=== PATIENT | male | born 1940 | race Caucasian/White ===

== ENCOUNTER → 2020-10-18 | Outpatient (CLI) | payer OTHER ==
[2020-10-18 12:12] LABS: Hematocrit 33.9 % (41.0-53.0); Hemoglobin 11.6 g/dL (13.5-17.5); Mean Corpuscular Hemoglobin 32.9 pg (28.0-32.0); Mean Corpuscular Hgb Conc. 34.4 g/dL (32.0-36.0); Mean Corpuscular Volume 95.7 fL (80.0-100.0); Platelet Count (auto) 131 10^3/uL (140-450); Red Blood Cells 3.54 10^6/uL (4.5-5.90); Red Cell Distribution Width 17.2 % (11.8-14.3); White Blood Cell 4.5 10^3/uL (4.4-10.8)
[2020-10-18 12:14] LABS: Band Neutrophils % (manual) 0; Basophils % (manual) 0 (0.0-2.0); Blast Cells 0; Metamyelocytes % 0; Myelocytes % 0; Promyelocytes % 0; Reactive Lymphocytes 0
[2020-10-18 12:55] LABS: Potassium 4.6 mmol/L (3.5-5.1)
[2020-10-18 13:03] LABS: Albumin 3.6 g/dL (3.4-5.0); BUN/Creatinine Ratio 24.1; Bilirubin, Total 0.6 mg/dL (0.2-1.0); Calcium 8.7 mg/dL (8.5-10.1)
[2020-10-18 13:21] LABS: Eosinophils % (manual) 2 (0-7); Lymphocytes % (manual) 39 (10.0-50.0); Monocytes % (manual) 24 (0-12)
== END | disposition home or self-care (01) ==
LOC: LAB 11:55
PROVIDERS: ATTEND Student in an Organized Health Care Education/Training Program
DX: I10 Essential (primary) hypertension (principal); E03.9 Hypothyroidism, unspecified; N39.0 Urinary tract infection, site not specified; Z12.11 Encounter for screening for malignant neoplasm of colon
CPT/HCPCS: 36415; 80053; 80061; 84443; 85007; 85027

== ENCOUNTER → 2021-10-15 | Outpatient (CLI) | payer OTHER ==
[2021-10-15 10:39] LABS: Basophils # (auto) 0 10 ^3/uL (0-0.2); Basophils % (auto) 0.5 % (0.0-2.0); Eosinophils # (auto) 0.1 10 ^3/uL (0-0.8); Eosinophils % (auto) 2.3 % (0.0-7.0); Hematocrit 34.7 % (41.0-53.0); Hemoglobin 11.8 g/dL (13.5-17.5); Lymphocytes # (auto) 1.7 10 ^3/uL (0.4-5.4); Lymphocytes % (auto) 37.6 % (10.0-50.0); Mean Corpuscular Hgb Conc. 33.9 g/dL (32.0-36.0); Mean Corpuscular Volume 94.3 fL (80.0-100.0); Monocytes # (auto) 0.9 10 ^3/uL (0-1.3); Neutrophils # (auto) 1.8 10 ^3/uL (1.6-8.6); Neutrophils % (auto) 39.7 % (37.0-80.0); Nucleated Red Blood Cells % 0.2 %; Red Blood Cells 3.68 10^6/uL (4.5-5.90); Red Cell Distribution Width 17.2 % (11.8-14.3); White Blood Cell 4.6 10^3/uL (4.4-10.8)
[2021-10-15 10:45] LABS: Monocytes % (auto) 19.9 % (0.0-12.0)
[2021-10-15 13:15] LABS: Potassium 4.5 mmol/L (3.5-5.1)
[2021-10-15 13:33] LABS: Albumin 3.6 g/dL (3.4-5.0); Bilirubin, Total 0.6 mg/dL (0.2-1.0); Calcium 9.1 mg/dL (8.5-10.1)
[2021-10-17 11:46] LABS: Urine Bacteria FEW /hpf (None Seen); Urine Blood Negative /uL (Negative); Urine Specific Gravity 1.013 (1.001-1.035); Urine WBC 6 /hpf (0 - 3)
== END | disposition home or self-care (01) ==
LOC: LAB 10:00
PROVIDERS: ATTEND Student in an Organized Health Care Education/Training Program
DX: D64.0 Hereditary sideroblastic anemia (principal); E03.9 Hypothyroidism, unspecified; I10 Essential (primary) hypertension
CPT/HCPCS: 36415; 80053; 80061; 81001; 84443; 85025

== ENCOUNTER → 2022-03-29 | Outpatient (CLI) | payer OTHER ==
[2022-03-29 08:38] LABS: Urine Bacteria FEW /hpf (None Seen); Urine Blood Negative /uL (Negative); Urine Hyaline Cast FEW /lpf (0 - 2); Urine Mucus FEW (None Seen); Urine Specific Gravity 1.019 (1.001-1.035); Urine WBC 150 /hpf (0 - 3)
== END | disposition home or self-care (01) ==
LOC: LAB 07:28
PROVIDERS: ATTEND Urology
DX: N39.0 Urinary tract infection, site not specified (principal)
CPT/HCPCS: 81001; 87086

== ENCOUNTER → 2022-07-08 | Outpatient (CLI) | payer OTHER | END | disposition home or self-care (01) | LOC: XYW 13:30 | PROVIDERS: ATTEND Internal Medicine | DX: I07.1 Rheumatic tricuspid insufficiency (principal); I11.9 Hypertensive heart disease without heart failure | CPT/HCPCS: 93306 ==

== ENCOUNTER → 2022-07-12 | Outpatient (CLI) | payer OTHER ==
[~2022-07-12] VITALS: Ht 180.3 cm; Wt 88.5 kg
[~2022-07-12] MED LIST: ADENOSINE 74 MG in GIVE UN-DILUTED 0 ML IV ONE
== END | disposition home or self-care (01) ==
LOC: XYW 07:25
PROVIDERS: ATTEND Internal Medicine
DX: Z01.810 Encounter for preprocedural cardiovascular examination (principal); I10 Essential (primary) hypertension; E78.5 Hyperlipidemia, unspecified; E03.9 Hypothyroidism, unspecified
CPT/HCPCS: 78452; 93017; A9500; J0153

== ENCOUNTER → 2022-08-22 | Day surgery (SDC) | payer OTHER ==
[2022-08-19 13:29] LABS: Hematocrit 32.6 % (41.0-53.0); Hemoglobin 11.1 g/dL (13.5-17.5); Mean Corpuscular Hemoglobin 32.7 pg (28.0-32.0); Mean Corpuscular Volume 96.2 fL (80.0-100.0); Red Blood Cells 3.39 10^6/uL (4.5-5.90); Red Cell Distribution Width 17.9 % (11.8-14.3); White Blood Cell 3.8 10^3/uL (4.4-10.8)
[2022-08-19 13:46] LABS: Basophils % (manual) 0 (0.0-2.0); Blast Cells 0; Eosinophils % (manual) 0 (0-7); Myelocytes % 0; Promyelocytes % 0
[2022-08-19 13:52] LABS: INR 0.99 (0.9-1.15); Partial Thromboplastin Time 30.5 sec (24.6-33.4)
[2022-08-19 14:00] LABS: Potassium 4.9 mmol/L (3.5-5.1)
[2022-08-19 14:15] LABS: Albumin 3.5 g/dL (3.4-5.0); BUN/Creatinine Ratio 19.3; Bilirubin, Total 0.6 mg/dL (0.2-1.0); Calcium 8.7 mg/dL (8.5-10.1); Total Protein 7.2 g/dL (6.4-8.2)
[2022-08-19 14:45] LABS: Band Neutrophils % (manual) 1; Lymphocytes % (manual) 23 (10.0-50.0); Metamyelocytes % 1; Monocytes % (manual) 14 (0-12); Reactive Lymphocytes 1
[~2022-08-22] VITALS: Ht 182.9 cm; Wt 88.9 kg
[~2022-08-22] MED LIST changes: -ADENOSINE 74 MG in GIVE UN-DILUTED 0 ML IV ONE; +ATOR20TA PO; +BACDST PO; +CALC-179 OR; +CIPROFLOXACIN 400MG/200ML 200 ML IV ONE; +DexAMETHasone SOD PHOS 10MG/1ML VIAL INJ ONE; +FINA5TAB4 PO; +HYDROmorphone HCL 2 MG/ML VL/or syr IV PRN; +LABETALOL HCL 5 MG/ML 4ML SYRINGE IV PRN; +LEVO25TA6 PO; +LISI20TA28 PO; +MEPERIDINE HCL (50 MG/ML) 1 ML VIAL ONE; +MIDAZOLAM HCL 2MG/2ML 2ml VIAL (1mg/ml) IV PRN; +MIDAZOLAM HCL 2MG/2ML 2ml VIAL (1mg/ml) ONE; +MORPHINE SULFATE 4 MG/ML SYR/VIAL IV PRN; +OMEG300C7 OR; +ONDANSETRON HCL 4 MG/2 ML VIAL IV PRN; +PROPOFOL 10 MG/ML 20 ML IV ONE; +TAMS0.4C36 PO; +ePHEDrine SULFATE 50 MG/ML AMP IV PRN; +fentaNYL CITRATE 100 MCG/2 ML VL ONE
[2022-08-22 15:50] VITALS: BP 150/76
== END | disposition home or self-care (01) ==
LOC: SUR 09:35
PROVIDERS: ATTEND Urology
DX: N35.919 Unspecified urethral stricture, male, unspecified site (principal); R06.02 Shortness of breath; I10 Essential (primary) hypertension; E78.5 Hyperlipidemia, unspecified; M19.90 Unspecified osteoarthritis, unspecified site; E03.9 Hypothyroidism, unspecified; Z98.890 Other specified postprocedural states; Z01.812 Encounter for preprocedural laboratory examination; Z85.828 Personal history of other malignant neoplasm of skin; Z20.822 Contact with and (suspected) exposure to COVID-19; Z79.899 Other long term (current) drug therapy
CPT/HCPCS: 36415; 52276; 80053; 85007; 85027; 85610; 85730; J0744; J1100; J2175; J2250; J2704; J3010; U0003

== ENCOUNTER → 2022-10-14 | Outpatient (CLI) | payer OTHER ==
[~2022-10-14] MED LIST changes: -CIPROFLOXACIN 400MG/200ML 200 ML IV ONE; -DexAMETHasone SOD PHOS 10MG/1ML VIAL INJ ONE; -HYDROmorphone HCL 2 MG/ML VL/or syr IV PRN; -LABETALOL HCL 5 MG/ML 4ML SYRINGE IV PRN; -MEPERIDINE HCL (50 MG/ML) 1 ML VIAL ONE; -MIDAZOLAM HCL 2MG/2ML 2ml VIAL (1mg/ml) IV PRN; -MIDAZOLAM HCL 2MG/2ML 2ml VIAL (1mg/ml) ONE; -MORPHINE SULFATE 4 MG/ML SYR/VIAL IV PRN; -ONDANSETRON HCL 4 MG/2 ML VIAL IV PRN; -PROPOFOL 10 MG/ML 20 ML IV ONE; -ePHEDrine SULFATE 50 MG/ML AMP IV PRN; -fentaNYL CITRATE 100 MCG/2 ML VL ONE
[2022-10-14 12:04] LABS: Hematocrit 31.2 % (41.0-53.0); Hemoglobin 10.5 g/dL (13.5-17.5); Mean Corpuscular Hemoglobin 32.2 pg (28.0-32.0); Mean Corpuscular Hgb Conc. 33.5 g/dL (32.0-36.0); Red Blood Cells 3.25 10^6/uL (4.5-5.90); Red Cell Distribution Width 18.2 % (11.8-14.3); White Blood Cell 3.8 10^3/uL (4.4-10.8)
[2022-10-14 12:07] LABS: Band Neutrophils % (manual) 0; Basophils % (manual) 0 (0.0-2.0); Blast Cells 0; Metamyelocytes % 0; Myelocytes % 0; Promyelocytes % 0; Reactive Lymphocytes 0
[2022-10-14 12:41] LABS: Albumin 3.5 g/dL (3.4-5.0); BUN/Creatinine Ratio 22.3; Calcium 8.6 mg/dL (8.5-10.1); Potassium 4.6 mmol/L (3.5-5.1)
[2022-10-14 12:46] LABS: Bilirubin, Total 0.6 mg/dL (0.2-1.0); Total Protein 6.7 g/dL (6.4-8.2)
[2022-10-14 12:49] LABS: Prostate Specific Antigen 0.15 ng/mL (0.0-4.0)
[2022-10-14 12:51] LABS: Free T4 (Free Thyroxine) 1.24 ng/dL (0.89-1.76)
[2022-10-14 16:27] LABS: Eosinophils % (manual) 2 (0-7); Lymphocytes % (manual) 57 (10.0-50.0); Monocytes % (manual) 11 (0-12)
== END | disposition home or self-care (01) ==
LOC: LAB 11:40
PROVIDERS: ATTEND Student in an Organized Health Care Education/Training Program
DX: E03.9 Hypothyroidism, unspecified (principal); N40.0 Benign prostatic hyperplasia without lower urinary tract symptoms; N39.0 Urinary tract infection, site not specified
CPT/HCPCS: 36415; 80053; 80061; 84153; 84439; 84443; 85007; 85027

== ENCOUNTER → 2023-02-10 | Outpatient (CLI) | payer OTHER ==
[~2023-02-10] MED LIST changes: -LISI20TA28 PO; +LISI20TA56 PO
[2023-02-10 10:49] LABS: Urine Bacteria NONE SEEN /hpf (None Seen); Urine Blood Negative /uL (Negative); Urine Mucus FEW (None Seen); Urine Specific Gravity 1.017 (1.001-1.035); Urine WBC 12 /hpf (0 - 3)
[2023-02-10 11:22] LABS: Prostate Specific Antigen 0.12 ng/mL (0.0-4.0)
[2023-02-10 11:29] LABS: Albumin 3.4 g/dL (3.4-5.0); Potassium 4.5 mmol/L (3.5-5.1)
[2023-02-10 11:35] LABS: BUN/Creatinine Ratio 19.8 (10.0-20.0); Bilirubin, Total 0.5 mg/dL (0.2-1.0); Total Protein 6.8 g/dL (6.4-8.2)
[2023-02-10 11:40] LABS: Free T4 (Free Thyroxine) 1.33 ng/dL (0.89-1.76)
== END | disposition home or self-care (01) ==
LOC: LAB 09:48
PROVIDERS: ATTEND Student in an Organized Health Care Education/Training Program
DX: I10 Essential (primary) hypertension (principal); E78.5 Hyperlipidemia, unspecified; E03.9 Hypothyroidism, unspecified
CPT/HCPCS: 36415; 80053; 80061; 81001; 83036; 84153; 84439; 84443; 87086

== ENCOUNTER → 2023-10-15 | Outpatient (CLI) | payer OTHER ==
[2023-10-15 11:45] LABS: Hematocrit 33.5 % (41.0-53.0); Hemoglobin 10.8 g/dL (13.5-17.5); Mean Corpuscular Hemoglobin 30.6 pg (28.0-32.0); Mean Corpuscular Hgb Conc. 32.4 g/dL (32.0-36.0); Mean Corpuscular Volume 94.5 fL (80.0-100.0); Red Blood Cells 3.54 10^6/uL (4.5-5.90); Red Cell Distribution Width 18.8 % (11.8-14.3); White Blood Cell 4.3 10^3/uL (4.4-10.8)
[2023-10-15 11:50] LABS: Band Neutrophils % (manual) 0; Basophils % (manual) 0 (0.0-2.0); Blast Cells 0; Eosinophils % (manual) 0 (0-7); Metamyelocytes % 0; Myelocytes % 0; Promyelocytes % 0; Reactive Lymphocytes 0
[2023-10-15 11:53] LABS: Urine Bacteria NONE SEEN /hpf (None Seen); Urine Blood Negative /uL (Negative); Urine Clarity Clear (Clear); Urine Color Colorless (Yellow); Urine Protein, UAD Negative (Negative); Urine Specific Gravity 1.015 (1.001-1.035); Urine Urobilinogen Normal (Negative); Urine WBC 22 /hpf (0 - 3)
[2023-10-15 12:14] LABS: Lymphocytes % (manual) 37 (10.0-50.0); Monocytes % (manual) 18 (0-12); Platelet Estimate Adequate
[2023-10-15 12:16] LABS: Alanine Aminotransferase 26 U/L (7-40); Albumin 4.2 g/dL (3.2-4.8); Alkaline Phosphatase 100 U/L (46-116); Anion Gap 5 (5-15); Aspartate Aminotransferase 28 U/L (13-40); Bilirubin, Total 0.8 mg/dL (0.2-1.0); Blood Urea Nitrogen 21 mg/dL (9-23); Calcium 9.2 mg/dL (8.5-10.1); Carbon Dioxide 28 mmol/L (20-30); Chloride 109 mmol/L (98-107); Cholesterol 97 mg/dL (< 200); Glucose 93 mg/dL (74-106); HDL Cholesterol 40 mg/dL (40-59); LDL Cholesterol 47 mg/dL (< 100); Potassium 4.4 mmol/L (3.5-5.1); Sodium 142 mmol/L (136-145); Total Protein 6.8 g/dL (5.7-8.2); Triglycerides 41 mg/dL (< 150)
== END | disposition home or self-care (01) ==
LOC: LAB 11:25
PROVIDERS: ATTEND Student in an Organized Health Care Education/Training Program
DX: I10 Essential (primary) hypertension (principal); E78.5 Hyperlipidemia, unspecified; E03.9 Hypothyroidism, unspecified; N39.0 Urinary tract infection, site not specified
CPT/HCPCS: 36415; 80053; 80061; 81001; 84439; 84443; 85007; 85027; 87086

== ENCOUNTER → 2024-10-05 | Outpatient (CLI) | payer OTHER ==
[~2024-10-05] MED LIST changes: -TAMS0.4C36 PO; +TAMS0.4C39 PO
[2024-10-05 12:13] LABS: Urine Bacteria None Seen /hpf (None Seen)
[2024-10-05 12:38] LABS: Basophils # (auto) 0 10 ^3/uL (0-0.2); Basophils % (auto) 0.5 % (0.0-2.0); Eosinophils # (auto) 0 10 ^3/uL (0-0.8); Eosinophils % (auto) 1.3 % (0.0-7.0); Hematocrit 31.5 % (41.0-53.0); Hemoglobin 10.6 g/dL (13.5-17.5); Lymphocytes # (auto) 1.6 10 ^3/uL (0.4-5.4); Lymphocytes % (auto) 44.6 % (10.0-50.0); Mean Corpuscular Hemoglobin 31.3 pg (28.0-32.0); Mean Corpuscular Hgb Conc. 33.6 g/dL (32.0-36.0); Mean Corpuscular Volume 93.1 fL (80.0-100.0); Monocytes # (auto) 0.6 10 ^3/uL (0-1.3); Monocytes % (auto) 17.7 % (0.0-12.0); Neutrophils # (auto) 1.3 10 ^3/uL (1.6-8.6); Neutrophils % (auto) 35.9 % (37.0-80.0); Nucleated Red Blood Cells % 0.2 %; Platelet Count (auto) 141 10^3/uL (140-450); Red Blood Cells 3.39 10^6/uL (4.5-5.90); Red Cell Distribution Width 17.3 % (11.8-14.3); White Blood Cell 3.5 10^3/uL (4.4-10.8)
[2024-10-05 12:58] LABS: Urine Blood Negative /uL (Negative); Urine Clarity Clear (Clear); Urine Color Light-Yellow (Yellow); Urine Protein, UAD Negative (Negative); Urine Specific Gravity 1.014 (1.001-1.035); Urine Squamous Epithelial Cell FEW /hpf (<5); Urine Urobilinogen Normal (Negative); Urine WBC 12 /HPF (0-3)
[2024-10-05 13:07] LABS: Alanine Aminotransferase 24 U/L (7-40); Albumin 4.2 g/dL (3.2-4.8); Anion Gap 7 (5-15); Aspartate Aminotransferase 25 U/L (13-40); BUN/Creatinine Ratio 18.6 (10.0-20.0); Calcium 9.5 mg/dL (8.7-10.4); Carbon Dioxide 25 mmol/L (20-31); Glucose 98 mg/dL (74-106); LDL Cholesterol 52 mg/dL (< 100); Potassium 4.6 mmol/L (3.5-5.1); Sodium 142 mmol/L (136-145); Triglycerides 52 mg/dL (< 150)
[2024-10-05 13:08] LABS: Bilirubin, Total 0.6 mg/dL (0.2-1.0); Cholesterol 101 mg/dL (< 200)
[2024-10-05 13:13] LABS: Blood Urea Nitrogen 26 mg/dL (9-23); Chloride 110 mmol/L (98-107); HDL Cholesterol 35 mg/dL (40-59)
[2024-10-05 13:44] LABS: Alkaline Phosphatase 109 U/L (46-116)
== END | disposition home or self-care (01) ==
LOC: LAB 11:57
PROVIDERS: ATTEND Student in an Organized Health Care Education/Training Program
DX: I10 Essential (primary) hypertension (principal); E03.9 Hypothyroidism, unspecified
CPT/HCPCS: 36415; 80053; 80061; 81001; 83036; 84439; 84443; 85025

== ENCOUNTER 2025-04-20 12:06 | Outpatient (CLI) | payer OTHER ==
[2025-04-20 12:32] LABS: Hematocrit 31.1 % (41.0-53.0); Hemoglobin 10.5 g/dL (13.5-17.5); Mean Corpuscular Hemoglobin 30.4 pg (28.0-32.0); Mean Corpuscular Volume 90.2 fL (80.0-100.0)
[2025-04-20 12:36] LABS: Urine Protein, UAD Negative (Negative)
[2025-04-20 12:53] LABS: Alanine Aminotransferase 22 U/L (7-40); Albumin 4.1 g/dL (3.2-4.8); Alkaline Phosphatase 111 U/L (46-116); Anion Gap 9 (5-15); BUN/Creatinine Ratio 11.3 (10.0-20.0); Bilirubin, Total 0.9 mg/dL (0.2-1.0); Blood Urea Nitrogen 16 mg/dL (9-23); Calcium 9.0 mg/dL (8.7-10.4); Carbon Dioxide 25 mmol/L (20-31); Chloride 106 mmol/L (98-107); Cholesterol 97 mg/dL (< 200); Glucose 93 mg/dL (74-106); HDL Cholesterol 40 mg/dL (40-59); Potassium 4.6 mmol/L (3.5-5.1); Sodium 140 mmol/L (136-145); Total Protein 7.3 g/dL (5.7-8.2); Triglycerides 43 mg/dL (< 150)
[2025-04-20 13:02] LABS: Total Cells Counted 100.0 (100)
== END 2025-04-20 17:00 | disposition home or self-care (01) ==
LOC: LAB 12:06
PROVIDERS: ATTEND Student in an Organized Health Care Education/Training Program
DX: I10 Essential (primary) hypertension (principal); N40.0 Benign prostatic hyperplasia without lower urinary tract symptoms; E78.5 Hyperlipidemia, unspecified; E55.9 Vitamin D deficiency, unspecified; N39.0 Urinary tract infection, site not specified; R73.9 Hyperglycemia, unspecified
CPT/HCPCS: 36415; 80053; 80061; 81001; 82306; 83036; 84443; 85007; 85027; 87086